=== PATIENT | male | born 1955 | race African-American/Black ===

== ENCOUNTER 2018-05-25 16:05 | Emergency (ER) | payer MEDICARE, MEDICAID ==
[2018-05-25 16:35] LABS: Bilirubin Negative (Negative); Blood, Urine Large (Negative); Clarity CLOUDY (Clear); Glucose, Urine (Dipstick) Negative (Negative); Leukocyte Large (Negative); Nitrite Negative (Negative); Protein, Urine (Dipstick) 30 mg/dL (Neg-Trace); Specific Gravity, Urine 1.036 (1.002-1.036); Urobilinogen 0.2 mg/dL (0.2-1.0)
[2018-05-25 16:36] LABS: Bacteria/HPF None Seen HPF (None Seen); Hyaline Casts/LPF 4-6 HYALINE CAST LPF (0-3 Hyaline); Pathc Cast-AUWi Flag 0.87 (0-2.49); Squamous Epithelial 0-3 HPF (0-3)
[2018-05-25 16:42] LABS: Yeast-AUWi Flag 80.3 (0-25.0)
[2018-05-25 16:52] LABS: Yeast-All Forms None Seen HPF (None Seen)
[2018-05-25 17:03] LABS: Hemoglobin 13.3 g/dL (14.0-18.0); Mean Corpuscular HGB CONC 34.1 g/dL (32.0-36.0); Mean Corpuscular Hemoglobin 30.6 pg (27.0-31.0); Mean Corpuscular Volume 89.7 fL (78.0-98.0); Mean Platelet Volume 6.7 fL (7.4-10.4); Platelet Count 206 thou/uL (130-400); RBC Distribution Width 12.8 % (11.5-14.5); Red Blood Cell (RBC) Count 4.36 mill/uL (4.70-6.10); White Blood Cell (WBC) Count 6.7 thou/uL (4.8-10.8)
[2018-05-25 17:23] LABS: ALT (SGPT) 15 U/L (8-55); AST (SGOT) 20 U/L (5-34); Albumin 4.1 g/dL (3.4-4.8); Alkaline Phosphatase 62 U/L (40-150); Anion Gap 13 mmol/L (10-20); BUN (Urea Nitrogen) 12 mg/dL (8.4-25.7); Bilirubin, Total 0.4 mg/dL (0.2-1.2); Calc. Creatinine Clearance 0 mL/min (70-130); Calcium 9.5 mg/dL (7.8-10.44); Carbon Dioxide 22 mmol/L (23-31); Chloride 103 mmol/L (98-107); Estimated GFR-MDRD 72; Globulin 4.3 g/dL (2.4-3.5); Glucose 106 mg/dL (80-115); Potassium 4.2 mmol/L (3.5-5.1); Protein, Total 8.4 g/dL (5.8-8.1); Sodium 134 mmol/L (136-145)
[2018-05-25 17:32] LABS: Band 3 % (5-11); Eosinophils 1 % (0-10); Lymphocytes 3 % (21-51); MDiff Complete? YES; Monocytes 4 % (0-10); Neutrophil 89 % (42-75); PLT Morphology Comment Appears Adequate
--- NOTE | 2018-05-25 18:43 | CT ---
CT HEAD NONCONTRAST: 05/25/18 HISTORY: Headache. FINDINGS: No comparison. There is no evidence of acute intracranial hemorrhage or infarct. Ventricles appear normal in size, s hape and position. There is no mass effect or shift of midline structures. Mild dystrophic calcificat ion at the basal ganglia. The visualized paranasal sinuses remain well aerated. IMPRESSION: No acute intracranial abnormalities are demonstrated on noncontrast CT head. POS: KALIH
[2018-05-25] MEDS ORDERED: diphenhydrAMINE 50 MG/ML VIAL ONE (18:47)
[2018-05-25] MEDS ORDERED: Metoclopramide HCl 10 MG/2 ML VIAL ONE (18:47)
[2018-05-25] MEDS ORDERED: Acetaminophen 500 MG TAB ONE (18:47)
[2018-05-25] MEDS ORDERED: Cephalexin 250 MG CAP ONE (19:51)
[2018-05-25] MEDS ORDERED: Dexamethasone 4 mg/ml Vial ONE (19:51)
== END 2018-05-25 19:59 | disposition home or self-care (01) ==
LOC: ERS 16:05
DX: R51 Headache (principal); N39.0 Urinary tract infection, site not specified; I10 Essential (primary) hypertension
CPT/HCPCS: 36415; 70450; 80053; 81003; 81015; 83605; 85025; 85652; 86140; 87077; 87086; 87186; 96361; 96374; 96375; J1100; J1200; J2765

== ENCOUNTER 2018-06-01 10:09 | Outpatient (CLI) | payer MEDICARE, MEDICAID ==
[2018-06-01 10:45] LABS: Estimated GFR-MDRD - POC Greater than 90
--- NOTE | 2018-06-01 12:47 | CT ---
PELVIC CT SCAN WITH IV CONTRAST: HISTORY: A 63-year-old male with a history of an elevated prostate specific antigen. Exam was performed with rectal contrast and oral contrast. FINDINGS: At the time of this examination, rectal contrast media was demonstrated. There was no significant or al contrast noted within the small bowel. There is some concentrated contrast within the visualized distal ureters, but this has not yet emptied into the bladder, so there is very minimal contrast with in the bladder. The exam is somewhat limited because of the lack of intraabdominal and pelvic fat. The prostate gland measures approximately 3.9 x 5.5 cm. No definitive pelvic adenopathy. No abscess or abnormal fluid collection. IMPRESSION: Concentrated contrast within the distal ureters, with only a very tiny amount within the bladder. Th e examination is somewhat limited due to lack of intraabdominal and pelvic fat, as well as lack of or al contrast within the small bowel. No evidence for pelvic adenopathy, abscess, or significant abnor mal fluid collection. POS: CHUCK
[2018-06-01] MEDS ORDERED: Iopamidol 370 76% 100 ML VIAL ONE (14:08)
[2018-06-01] MEDS ORDERED: Iopamidol 370 76% 50 ML VIAL FS ONE (14:08)
--- NOTE | 2018-06-01 17:47 | NM ---
WHOLE BODY BONE SCAN: 06/01/18 HISTORY: Elevated prostate specific antigen (PSA). RADIOPHARMACEUTICAL: 32.5 millicuries technetium 99M MDP, IV. VIEWS OBTAINED: Anterior and posterior whole body. COMPARISON: None available. FINDINGS: There is symmetric increased uptake in the shoulders bilaterally in a degenerative pattern. There is also increased uptake seen involving the left hand probably related to degenerative changes as well. No additional areas of abnormal uptake of radiotracer is seen throughout the visualized axial and altaf endicular skeleton. There is activity seen within the region of the kidneys bilaterally. There is a f ocus of increased uptake overlying the left kidney may be related to retention of radiotracer within a renal calyx. IMPRESSION: 1. No scintigraphic findings to suggest osseous metastatic disease. 2. Degenerative change in the shoulders and left hand. 3. Mild increased uptake seen in the region of the maxilla and mandible which may be related to periodontal disease. POS: CHUCK
== END 2018-06-01 10:10 | disposition home or self-care (01) ==
LOC: NM 10:09
PROVIDERS: ATTEND Urology
DX: C61 Malignant neoplasm of prostate (principal); R97.20 Elevated prostate specific antigen [PSA]; N40.0 Benign prostatic hyperplasia without lower urinary tract symptoms; R35.1 Nocturia; R68.89 Other general symptoms and signs; N39.0 Urinary tract infection, site not specified; M19.012 Primary osteoarthritis, left shoulder; M19.011 Primary osteoarthritis, right shoulder; M19.042 Primary osteoarthritis, left hand
CPT/HCPCS: 72193; 78306; 82565; A9503

== ENCOUNTER 2018-07-13 08:49 | Outpatient (CLI) | payer MEDICARE, MEDICAID ==
[2018-07-13] MEDS ORDERED: Gadobenate Dimeglumine 529 MG/1 ML (20ML VIAL) ONE (16:11)
--- NOTE | 2018-07-13 16:13 | MRI ---
MRI OF THE PELVIS WITH AND WITHOUT IV CONTRAST: 07/13/18 INDICATION: History of malignant neoplasm of the prostate. COMPARISON: None. TECHNIQUE: Multiplanar and multisequence MR images were obtained of the pelvis utilizing prostate cancer specifi c protocol. 13 mL of Multihance was utilized for the examination. A CT of the pelvis dated 06/01/08 was reviewed. The examination was interpreted on a separate [employer] workstation for multiparametric evaluation. FINDINGS: The prostate measures 4.3 x 3.6 x 4.4 cm giving an estimated total prostatic volume of 30.74 mL. There is a large T2 hypointense lesion involving the base to apex of the posterior aspect of the pros khan gland measuring 4.2 x 1.5 x 3.3 cm with associated restricted diffusion. This lesion involves po rtions of the peripheral zone and posterior central zone suspicious for a very large clinically signi ficant malignancy. Lesion does abut the origins of the seminal vesicles likely related to seminal ves ical involvement. The lesion does abut the anterior margin of the lower rectum suspicious for rectal wall involvement. There is bilateral neurovascular involvement. No definite pathologically enlarged l ymph node is evident. There is a 4 mm left external iliac lymph node present. There is diffuse abnorm al enhancement involving this lesion on the dynamic contrast enhanced images. IMPRESSION: PI-RADS 5 - Very high (clinically significant cancer is highly likely to be present.) There is a very large lesion involving the base to apex of the posterior aspect of the prostate gland with sizes as above. Lesion has bilateral neurovascular involvement as well as involvement of the or igins of the seminal vesicles. The lesion does appear to extend along the capsular margin posteriorly and abut the anterior aspect of the rectum suspicious for anterior rectal wall involvement. POS: CHUCK
== END 2018-07-13 08:50 | disposition home or self-care (01) ==
LOC: TBSIIMAG 08:49
PROVIDERS: ATTEND Urology
DX: C61 Malignant neoplasm of prostate (principal); N42.9 Disorder of prostate, unspecified
CPT/HCPCS: 72197; A9579

== ENCOUNTER 2018-08-01 12:43 | Outpatient (CLI) | payer MEDICARE, MEDICAID ==
--- NOTE | 2018-08-01 15:01 | ULT ---
RENAL SONOGRAM: History: Prostate cancer. FINDINGS: Right kidney is 10.1 cm and left is 10.0 cm. Each has a normal appearance without evidence of mass, s tone, or hydronephrosis. Urinary bladder is unremarkable. Prostate gland is heterogenous and measures up to 5.8 cm. IMPRESSION: Normal renal sonogram. POS: KALI
== END 2018-08-01 12:44 | disposition home or self-care (01) ==
LOC: BICULT 12:43
PROVIDERS: ATTEND Urology
DX: C61 Malignant neoplasm of prostate (principal)
CPT/HCPCS: 76770

== ENCOUNTER 2018-10-20 02:11 | Emergency (ER) | payer MEDICARE, MEDICAID ==
[2018-10-20 02:49] LABS: #Basophils 0.1 thou/uL (0.0-0.2); #Eosinphils 0.2 thou/uL (0.0-0.7); #Monocytes 0.5 thou/uL (0.11-0.59); #Neutrophils 4.5 thou/uL (1.40-6.50); %Basophils 1.2 % (0.0-1.0); %Eosinophils 2.7 % (0.0-10.0); %Lymphocytes 16.6 % (21.0-51.0); %Monocytes 8.1 % (0.0-10.0); %Neutrophils 71.5 % (42.0-75.0); Hemoglobin 12.8 g/dL (14.0-18.0); Mean Corpuscular HGB CONC 33.1 g/dL (32.0-36.0); Mean Corpuscular Hemoglobin 30.2 pg (27.0-31.0); Mean Corpuscular Volume 91.1 fL (78.0-98.0); Mean Platelet Volume 7.6 fL (7.4-10.4); Platelet Count 194 thou/uL (130-400); Red Blood Cell (RBC) Count 4.26 mill/uL (4.70-6.10); White Blood Cell (WBC) Count 6.3 thou/uL (4.8-10.8)
[2018-10-20 03:07] LABS: ALT (SGPT) 20 U/L (8-55); AST (SGOT) 26 U/L (5-34); Albumin 4.1 g/dL (3.4-4.8); Alkaline Phosphatase 67 U/L (40-150); Anion Gap 12 mmol/L (10-20); BUN (Urea Nitrogen) 18 mg/dL (8.4-25.7); Bilirubin, Total 0.3 mg/dL (0.2-1.2); Calc. Creatinine Clearance 0 mL/min (70-130); Calcium 10.3 mg/dL (7.8-10.44); Carbon Dioxide 27 mmol/L (23-31); Chloride 103 mmol/L (98-107); Estimated GFR-MDRD 65; Globulin 3.6 g/dL (2.4-3.5); Glucose 103 mg/dL (80-115); Potassium 4.1 mmol/L (3.5-5.1); Protein, Total 7.7 g/dL (5.8-8.1); Sodium 138 mmol/L (136-145)
[2018-10-20 03:50] LABS: Bilirubin Negative (Negative); Blood, Urine Trace (Negative); Clarity CLOUDY (Clear); Glucose, Urine (Dipstick) Negative (Negative); Leukocyte Negative (Negative); Nitrite Negative (Negative); Protein, Urine (Dipstick) Negative (Neg-Trace); Specific Gravity, Urine 1.009 (1.002-1.036); Urobilinogen 0.2 mg/dL (0.2-1.0)
[2018-10-20 03:51] LABS: Bacteria/HPF None Seen HPF (None Seen); Hyaline Casts/LPF 0-3 HYALINE CAST LPF (0-3 Hyaline); Pathc Cast-AUWi Flag 0.29 (0-2.49); Squamous Epithelial 0-3 HPF (0-3); WBC/HPF 0-3 HPF (0-3)
--- NOTE | 2018-10-22 23:46 | EKG ---
Test Reason : Blood Pressure : / mmHG Vent. Rate : 076 BPM Atrial Rate : 076 BPM P-R Int : 154 ms QRS Dur : 068 ms QT Int : 412 ms P-R-T Axes : 067 063 070 degrees QTc Int : 463 ms Normal sinus rhythm Septal infarct , age undetermined Abnormal ECG Confirmed by RON YATES DO ([id number]), image editor COREY ZAVALA ([id number]) on 10/22/2018 11:45:47 PM Referred By: Confirmed By:RON YATES DO
== END 2018-10-20 04:31 | disposition home or self-care (01) ==
LOC: ERS 02:11
DX: R53.83 Other fatigue (principal); Z79.899 Other long term (current) drug therapy
CPT/HCPCS: 36415; 51701; 80053; 81003; 81015; 85025; 93005

== ENCOUNTER 2019-09-04 02:07 | Emergency (ER) | payer MEDICARE, MEDICAID ==
[2019-09-04 03:00] LABS: #Basophils 0.1 thou/uL (0.0-0.2); #Eosinphils 0.2 thou/uL (0.0-0.7); #Lymphocytes 1.4 thou/uL (1.20-3.40); #Monocytes 0.5 thou/uL (0.11-0.59); #Neutrophils 2.5 thou/uL (1.40-6.50); %Basophils 1.4 % (0.0-1.0); %Eosinophils 4.2 % (0.0-10.0); %Lymphocytes 30.1 % (21.0-51.0); %Monocytes 11.3 % (0.0-10.0); Hemoglobin 12.5 g/dL (14.0-18.0); Mean Corpuscular HGB CONC 32.8 g/dL (32.0-36.0); Mean Corpuscular Hemoglobin 29.4 pg (27.0-31.0); Mean Corpuscular Volume 89.5 fL (78.0-98.0); Mean Platelet Volume 7.5 fL (7.4-10.4); Platelet Count 226 thou/uL (130-400); Red Blood Cell (RBC) Count 4.26 mill/uL (4.70-6.10); White Blood Cell (WBC) Count 4.7 thou/uL (4.8-10.8)
[2019-09-04 03:14] LABS: Amphetamine Not Detected (NotDetected); Barbiturates Screen Not Detected (NotDetected); Benzodiazepine Screen Not Detected (NotDetected); Cocaine Metabolite Screen Detected (NotDetected); Medtox Control Line Valid? VALID (VALID); Medtox Reader # READER 4; Methadone Not Detected (NotDetected); Methamphetamine Not Detected (NotDetected); Opiate Screen Not Detected (NotDetected); Oxycodone Screen Not Detected (NotDetected); Phencyclidine (PCP) Not Detected (NotDetected); THC/Cannabinoid Screen Not Detected (NotDetected); Tricyclic Screen Not Detected (NotDetected)
[2019-09-04 03:18] LABS: ALT (SGPT) 16 U/L (8-55); AST (SGOT) 20 U/L (5-34); Albumin 4.2 g/dL (3.4-4.8); Alkaline Phosphatase 71 U/L (40-110); Anion Gap 11 mmol/L (10-20); BUN (Urea Nitrogen) 17 mg/dL (8.4-25.7); Bilirubin, Total 0.3 mg/dL (0.2-1.2); CK (CPK) 264 U/L (30-200); Calc. Creatinine Clearance 0 mL/min (70-130); Calcium 10.6 mg/dL (7.8-10.44); Carbon Dioxide 28 mmol/L (23-31); Chloride 105 mmol/L (98-107); Estimated GFR-MDRD 65; Globulin 3.4 g/dL (2.4-3.5); Glucose 77 mg/dL (80-115); Potassium 4.2 mmol/L (3.5-5.1); Protein, Total 7.6 g/dL (5.8-8.1); Sodium 140 mmol/L (136-145)
[2019-09-04 03:19] LABS: Acetaminophen Less than 6.0 mcg/mL (10.0-30.0); Alcohol Less than 10 mg/dL (Less than 10); Salicylate Less than 8.0 mg/dL (15.0-30.0)
[2019-09-04 03:35] LABS: Bilirubin Negative (Negative); Blood, Urine Negative (Negative); Clarity Clear (Clear); Glucose, Urine (Dipstick) Normal (Negative); Leukocyte Negative Leu/uL (Negative); Nitrite Negative (Negative); Protein, Urine (Dipstick) Negative (Neg-Trace); Urobilinogen Normal mg/dL (Less than 2)
== END 2019-09-04 05:13 | disposition home or self-care (01) ==
LOC: ERS 02:07
DX: M62.838 Other muscle spasm (principal); F14.10 Cocaine abuse, uncomplicated; I10 Essential (primary) hypertension; Z79.899 Other long term (current) drug therapy
CPT/HCPCS: 36415; 80053; 80306; 80307; 81003; 82550; 84443; 85025; 99284

== ENCOUNTER 2020-12-25 12:24 | Emergency (ER) | payer MEDICARE, MEDICAID ==
[2020-12-25 13:01] LABS: #Eosinphils 0.1 thou/uL (0.0-0.7); #Lymphocytes 1.1 thou/uL (1.20-3.40); #Monocytes 0.5 thou/uL (0.11-0.59); #Neutrophils 3.1 thou/uL (1.40-6.50); %Basophils 0.8 % (0.0-1.0); %Lymphocytes 22.5 % (21.0-51.0); %Monocytes 9.5 % (0.0-10.0); %Neutrophils 65.3 % (42.0-75.0); Hemoglobin 11.7 g/dL (14.0-18.0); Mean Corpuscular HGB CONC 32.6 g/dL (32.0-36.0); Mean Corpuscular Hemoglobin 30.4 pg (27.0-31.0); Mean Corpuscular Volume 93.2 fL (78.0-98.0); Platelet Count 219 thou/uL (130-400); Red Blood Cell (RBC) Count 3.86 mill/uL (4.70-6.10); White Blood Cell (WBC) Count 4.7 thou/uL (4.8-10.8)
[2020-12-25 13:28] LABS: ALT (SGPT) 14 U/L (8-55); AST (SGOT) 20 U/L (5-34); Alcohol Less than 10 mg/dL (Less than 10); Alkaline Phosphatase 60 U/L (40-110); Anion Gap 10 mmol/L (10-20); BUN (Urea Nitrogen) 12 mg/dL (8.4-25.7); Bilirubin, Total 0.4 mg/dL (0.2-1.2); Calc. Creatinine Clearance 0 mL/min (70-130); Calcium 9.2 mg/dL (7.8-10.44); Carbon Dioxide 28 mmol/L (23-31); Chloride 105 mmol/L (98-107); Globulin 3.2 g/dL (2.4-3.5); Glucose 107 mg/dL (80-115); Potassium 3.6 mmol/L (3.5-5.1); Protein, Total 7.2 g/dL (5.8-8.1); Sodium 139 mmol/L (136-145)
[2020-12-25 13:33] LABS: Amphetamine Not Detected (NotDetected); Barbiturates Screen Not Detected (NotDetected); Benzodiazepine Screen Not Detected (NotDetected); Cocaine Metabolite Screen Not Detected (NotDetected); Medtox Control Line Valid? VALID (VALID); Medtox Reader # READER 4; Methadone Not Detected (NotDetected); Methamphetamine Not Detected (NotDetected); Opiate Screen Not Detected (NotDetected); Oxycodone Screen Not Detected (NotDetected); Phencyclidine (PCP) Not Detected (NotDetected); THC/Cannabinoid Screen Not Detected (NotDetected); Tricyclic Screen Not Detected (NotDetected)
== END 2020-12-25 15:53 | disposition home or self-care (01) ==
LOC: ERS 12:24
DX: S30.0XXA Contusion of lower back and pelvis, initial encounter (principal); M51.36 Other intervertebral disc degeneration, lumbar region; D64.9 Anemia, unspecified; I10 Essential (primary) hypertension; V49.9XXA Car occupant (driver) (passenger) injured in unspecified traffic accident, initial encounter
CPT/HCPCS: 36415; 36416; 70450; 71045; 72125; 72128; 72131; 72170; 80053; 80306; 80307; 84484; 85025; 93005